=== PATIENT | female | born 2000 | race Caucasian/White ===

== ENCOUNTER 2023-06-13 16:00 | Outpatient (CLI) | payer BC, OTHER ==
[2023-06-13 20:41] LABS: BASOPHILS % (AUTO) 0.4 %; EOSINOPHILS # (AUTO) 0.1 10^3/uL (0.0-0.7); EOSINOPHILS % (AUTO) 1.3 %; HCT - HEMATOCRIT 42.1 % (37.0-47.0); HGB - HEMOGLOBIN 13.2 g/dL (12.0-16.0); LYMPHOCYTES % (AUTO) 25.8 %; MEAN CORPUSCULAR HGB CONC 31.4 g/dL (32.0-36.0); MEAN CORPUSCULAR VOLUME 86.1 fL (81.0-99.0); MEAN PLATELET VOLUME 11.1 fL (7.9-10.8); MONOCYTES # (AUTO) 0.6 10^3/uL (0.0-1.0); MONOCYTES % (AUTO) 7.3 %; NEUTROPHILS # (AUTO) 5.1 10^3/uL (1.5-6.6); NEUTROPHILS % (AUTO) 64.7 %; PLT - PLATELET COUNT 283 10^3/uL (130-450); RED BLOOD COUNT 4.89 10^6/uL (4.20-5.40); WHITE BLOOD COUNT 7.9 x10^3/uL (4.8-10.8)
[2023-06-13 20:59] LABS: ALBUMIN 4.3 g/dL (3.2-5.5); ALBUMIN/GLOBULIN RATIO 1.3 (1.0-2.2); BILIRUBIN,TOTAL 0.3 mg/dL (0.2-1.0); CALCIUM 9.9 mg/dL (8.5-10.3); CREATININE 0.9 mg/dL (0.6-1.3); POTASSIUM 4.1 mmol/L (3.5-4.5); TOTAL PROTEIN 7.7 g/dL (6.4-8.9)
[2023-06-13 23:12] LABS: THYROID STIMULATING HORMONE 1.83 uIU/mL (0.34-5.60)
== END 2023-06-13 16:15 | disposition home or self-care (01) ==
LOC: LAB.N 16:00
PROVIDERS: ATTEND Physician Assistant Medical
DX: R10.32 Left lower quadrant pain (principal); R53.83 Other fatigue
CPT/HCPCS: 36415; 80053; 83690; 84443; 85025

== ENCOUNTER 2023-06-14 08:00 | Outpatient (CLI) | payer BC, OTHER | END 2023-06-14 23:59 | disposition home or self-care (01) | LOC: LAB.R 08:00 | PROVIDERS: ATTEND Physician Assistant Medical | DX: R10.32 Left lower quadrant pain (principal) | CPT/HCPCS: 87045; 87046; 87427 ==

== ENCOUNTER 2023-08-04 13:31 | Outpatient (CLI) | payer BC, OTHER | END 2023-08-04 23:59 | disposition critical access hospital (66) | LOC: EMS 13:31 | DX: G43.909 Migraine, unspecified, not intractable, without status migrainosus (principal) | CPT/HCPCS: A0425; A0427 ==

== ENCOUNTER 2023-08-04 13:56 | Emergency (ER) | payer BC, OTHER ==
--- NOTE | 2023-08-04 14:12 | ED Physician Documentation ---
PD HPI HEADACHE - Stated complaint Stated Complaint: MIGRAINE - History obtained from History obtained from: Patient, EMS - Additional information Additional information: 23-year-old female with a history of migraine headaches presents via EMS with a migraine. The patient has migraines 2-3 times a month, and this morning she woke up with typical migraine behind the left eye and on the left side of the head. She states it progressively worsened and then she had a stabbing sensation of the left side of the head it was worse than her normal migraines. She took Excedrin without relief and thus called EMS. Upon EMS arrival, the patient was awake alert, with no acute neurologic changes. She was given 30 mg of IM Toradol and her headache has improved substantially since she received that medication. She feels nauseous but not vomiting, has not had any acute vision changes other than light sensitivity, no focal neurochanges including no numbness or tingling, no weakness, no difficulty speaking. The patient had tried sumatriptan in the past but it "made her bones hurt," and so she mostly takes Excedrin. She has never seen a neurologist for her headaches.She denies fever, chills, neck stiffness, cough or URI symptoms, no abdominal pain nausea vomitingno diarrhea constipation or urinary symptoms. She denies any chance of . Review of Systems Constitutional: reports: Reviewed and negative Eyes: reports: Reviewed and negative Ears: reports: Reviewed and negative Nose: reports: Reviewed and negative Throat: reports: Reviewed and negative Cardiac: reports: Reviewed and negative Respiratory: reports: Reviewed and negative GI: reports: Reviewed and negative : reports: Reviewed and negative Skin: reports: Reviewed and negative Musculoskeletal: reports: Reviewed and negative Neurologic: reports: Headache Psychiatric: reports: Reviewed and negative PD PAST MEDICAL HISTORY - Past Medical History Past Medical History: Yes Neuro: Migraines - Present Medications Home Medications: Ambulatory Orders Medication Instructions Recorded Confirmed Metoclopramide [Reglan] 10 mg PO Q6H PRN #30 tablet 08/04/23 - Allergies Allergies/Adverse Reactions: Allergies Allergy/AdvReac Type Severity Reaction Status Date / Time codeine Allergy Rash Verified 08/04/23 14:55 PD ED PE NORMAL - Vitals Vital signs reviewed: Yes - General General: Alert and oriented X 3, No acute distress, Well developed/nourished - HEENT HEENT: Atraumatic, PERRL, EOMI, Ears normal, Moist mucous membranes, Pharynx benign - Neck Neck: Supple, no meningeal sign, No bony TTP, No adenopathy, No JVD - Cardiac Cardiac: RRR, No murmur, No gallop, No rub - Respiratory Respiratory: No respiratory distress, Clear bilaterally - Abdomen Abdomen: Normal bowel sounds, Soft, Non tender, Non distended - Derm Derm: Normal color, Warm and dry, No rash - Extremities Extremities: No deformity, No tenderness to palpate, Normal ROM s pain, No cedric ma, No calf tenderness / cord - Neuro Neuro: Alert and oriented X 3, 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, No motor deficit, No sensory deficit, Normal speech Eye Opening: Spontaneous Motor: Obeys Commands Verbal: Oriented GCS Score: 15 Results - Vitals Vitals: Vital Signs - 24 hr 08/04/23 14:11 Temperature 36.4 C L Heart Rate 78 Respiratory 18 Rate Blood Pressure 133/70 H O2 Saturation 98 Oxygen O2 Source Room air - Rads (name of study) No standard instances Relevant Findings:: Final report received PD Medical Decision Making - ED course Complexity details: reviewed results, re-evaluated patient, considered differential, d/w patient ED course: 23-year-old female with a past medical history of migraines presented with a severe left-sided headache, typical typical location of prior migraines though worse than her normal. She had no acute neurologic changes. She had a lot of relief with Toradol but still had a mild headache on arrival here therefore we gave Benadryl and metoclopramide as well as a liter of normal saline with near complete resolution of her headache but the patient remain concerned that this was a lot more severe than her normal therefore we discussed imaging and she did want to proceed with a CT scan. I discussed with patient that in a small percentage of patients a CT scan could miss a subarachnoid hemorrhage and that I would recommend an LP if she remained concerned about that but the patient declined LP. She wanted to continue with the CT scan however. CT scan was reassuring and patient has not had recurrence of her symptoms, is completely neurologically at baseline and stable for discharge home. She was encouraged to follow-up with her PCP consider outpatient neurology consult given the fr equency of her headaches.n Departure - Departure Disposition: 01 Home, Self Care Clinical Impression: Migraine Qualifiers: Migraine type: unspecified Status migrainosus presence: without status migrainosus Intractability: not intractable Qualified Code(s): G43.909 - Migraine, unspecified, not intractable, without status migrainosus Condition: Good Instructions: ED Headache Migraine Prescriptions: Metoclopramide [Reglan] 10 mg PO Q6H PRN #30 tablet PRN Reason: Nausea / Vomiting Comments: Please follow-up with your primary doctor and consider referral to neurology given your frequent migraine episodes. Your head CT today was reassuring and your headache improved after receiving Toradol, metoclopramide, and Benadryl through the IV. If you have recurrent headaches, this can be medication that is repeated. I have prescribed a different nausea medicine that also helps with headaches that she can use at home as needed. Forms: PCP List
[2023-08-04] MEDS: SODIUM CHLORIDE 0.9% 1,000 ML IV STA (15:05)
[2023-08-04] MEDS: METOCLOPRAMIDE 10 MG/2 ML VIAL IVP STA (15:10)
[2023-08-04] MEDS: diphenhydrAMINE INJ 50 MG/ML VIAL IVP STA (15:11)
--- NOTE | 2023-08-04 17:27 | CT Report ---
PROCEDURE: Head WO INDICATIONS: severe headache TECHNIQUE: Noncontrast 4.5 mm thick angled axial sections acquired from the foramen magnum to the vertex. For r adiation dose reduction, the following was used: automated exposure control, adjustment of mA and/or kV according to patient size. COMPARISON: None. FINDINGS: Image quality: Excellent. CSF spaces: Basal cisterns are patent. No extra-axial fluid collections. Ventricles are normal in size and shape. Brain: No midline shift. No intracranial masses or hemorrhage. Childress-white matter interface is norm al. Skull and face: Calvarium and visualized facial bones are intact, without suspicious lesions. Sinuses: Visualized sinuses and mastoids are clear. IMPRESSION: No acute intracranial pathology. Reviewed by: Vicki Jiang MD on 08/04/2023 5:25 PM PDT Approved by: Vicki Jiang MD on 08/04/2023 5:25 PM PDT Station ID: [id number]
[2023-08-04 18:06] VITALS: BP 110/67; O2SAT 97
== END 2023-08-04 18:03 | disposition home or self-care (01) ==
LOC: EDUNIT# → ED 13:56
DX: G43.909 Migraine, unspecified, not intractable, without status migrainosus (principal)
CPT/HCPCS: 70450; 96374; 96375; 99283; 99284; J1200; J2765

== ENCOUNTER 2023-10-03 08:45 | Outpatient (CLI) | payer BC, OTHER ==
--- NOTE | 2023-10-04 10:51 | Ultrasound Report ---
ULTRASOUND OF RIGHT AXILLA: 10/03/2023 CLINICAL: Palpable right axilla lump. No prior exams were available for comparison. Color flow ultrasound of the right axilla was performed. Childress scale images of the real-time examinat ion were reviewed. No significant abnormalities were seen sonographically in the right axilla. No correlate to the reso lved palpable abnormality. IMPRESSION: NEGATIVE There is no sonographic correlate to the patient's palpable abnormality and no evidence of malignancy . Clinical follow up is recommended for symptoms as needed. Screening mammography beginning at age 40 is recommended. Findings and recommendations were conveyed to the patient at time of exam. This exam was interpreted at Station ID: [id number]. Electronically Signed By: Thelma smith/:10/03/2023 09:41:27 letter sent: No_Letter Ultrasound BI-RADS: 1 Negative BI-RADS CATEGORY: (1) - 1 Unspecified - other recall n/a LATERALITY: (B)
== END 2023-10-03 08:46 | disposition home or self-care (01) ==
LOC: DI 08:45
PROVIDERS: ATTEND Nurse Practitioner Family
DX: N63.31 Unspecified lump in axillary tail of the right breast (principal)

== ENCOUNTER 2023-11-10 08:59 | Emergency (ER) | payer BC, OTHER ==
[2023-11-10 09:33] LABS: BASOPHILS % (AUTO) 0.3 %; EOSINOPHILS # (AUTO) 0.2 10^3/uL (0.0-0.7); EOSINOPHILS % (AUTO) 1.5 %; HCT - HEMATOCRIT 42.8 % (37.0-47.0); HGB - HEMOGLOBIN 13.7 g/dL (12.0-16.0); LYMPHOCYTES # (AUTO) 1.9 10^3/uL (1.5-3.5); LYMPHOCYTES % (AUTO) 19.7 %; MEAN CORPUSCULAR HEMOGLOBIN 27.9 pg (27.0-31.0); MEAN CORPUSCULAR VOLUME 87.2 fL (81.0-99.0); MEAN PLATELET VOLUME 10.2 fL (7.9-10.8); MONOCYTES # (AUTO) 0.6 10^3/uL (0.0-1.0); MONOCYTES % (AUTO) 6.1 %; NEUTROPHILS # (AUTO) 7.1 10^3/uL (1.5-6.6); PLT - PLATELET COUNT 285 10^3/uL (130-450); RED BLOOD COUNT 4.91 10^6/uL (4.20-5.40); RED CELL DISTRIBUTION WIDTH 12.7 % (12.0-15.0); WHITE BLOOD COUNT 9.8 x10^3/uL (4.8-10.8)
[2023-11-10 09:46] LABS: ALBUMIN 4.1 g/dL (3.2-5.5); ALBUMIN/GLOBULIN RATIO 1.2 (1.0-2.2); BILIRUBIN,TOTAL 0.6 mg/dL (0.2-1.0); CALCIUM 9.3 mg/dL (8.5-10.3); CREATININE 0.9 mg/dL (0.6-1.3); TOTAL PROTEIN 7.4 g/dL (6.4-8.9)
[2023-11-10 10:13] LABS: BILIRUBIN,URINE NEGATIVE (NEGATIVE); GLUCOSE, URINE (UA) NEGATIVE (NEGATIVE); KETONES,URINE (UA) NEGATIVE (NEGATIVE); LEUKOCYTE ESTERASE, URINE NEGATIVE (NEGATIVE); NITRITE,URINE NEGATIVE (NEGATIVE); OCCULT BLOOD,URINE TRACE-LYSE (NEGATIVE); PROTEIN,URINE NEGATIVE (NEGATIVE); UROBILINOGEN,URINE 0.2 (NORMAL) E.U./dL (NORMAL)
[2023-11-10 10:14] LABS: CLARITY,URINE CLEAR (CLEAR)
[2023-11-10 10:15] LABS: HCG UR QUAL NEGATIVE
--- NOTE | 2023-11-10 10:41 | ED Physician Documentation ---
History of Present Illness - Stated complaint Stated Complaint: LT LOWER BACK PX,NAUSEA - Chief complaint Chief Complaint: Abd Pain - History obtained from History obtained from: Patient - Additonal information Additional information: The patient comes to the emergency department with chief complaint of left pelvic pain that started this morning when she woke up. She states it is sharp and tearing. It is fine as long she does not move about as soon as she moves, she gets a severe pain. She states it hurts about it makes her nauseated. No fevers or chills. No dysuria or vaginal symptoms. She states she is on about day 18 of her cycle and is not currently bleeding. PD PAST MEDICAL HISTORY - Past Medical History Past Medical History: Yes Neuro: Migraines MANUFACTURING MANAGER: Ovarian cysts - Past Surgical History Past Surgical History: Yes /MANUFACTURING MANAGER: Other - Present Medications Home Medications: Ambulatory Orders Medication Instructions Recorded Confirmed Metoclopramide [Reglan] 10 mg PO Q6H PRN #30 tablet 08/04/23 - Allergies Allergies/Adverse Reactions: Allergies Allergy/AdvReac Type Severity Reaction Status Date / Time codeine Allergy Rash Verified 11/10/23 09:19 - Social History Does the pt smoke?: No Smoking Status: Never smoker Does the pt drink ETOH?: Yes Does the pt have substance abuse?: Yes - Immunizations Immunizations are current?: Yes - POLST Patient has POLST: No PD ED PE NORMAL - Vitals Vital signs reviewed: Yes - General General: Alert and oriented X 3, No acute distress, Well developed/nourished - HEENT HEENT: Atraumatic, PERRL, EOMI, Moist mucous membranes - Neck Neck: Supple, no meningeal sign - Cardiac Cardiac: RRR, No murmur - Respiratory Respiratory: No respiratory distress, Clear bilaterally - Abdomen Abdomen: Soft, Non distended, Other (Exquisite tenderness left pelvis/lower quadrant. No rebound or guarding. Exam brings patient to tears. Remainder of abdominal exam is benign.) - Derm Derm: Normal color, Warm and dry, No rash - Extremities Extremities: No deformity - Neuro Neuro: Other (Alert, grossly intact.) - Psych Psych: Normal mood, Normal affect Results - Vitals Vitals: Vital Signs - 24 hr 11/10/23 11/10/23 11/10/23 09:16 11:19 13:00 Temperature 36.5 C Heart Rate 98 62 62 Respiratory 20 16 13 Rate Blood Pressure 148/103 H 138/85 H 119/76 O2 Saturation 98 96 99 11/10/23 15:15 Temperature 36 C L Heart Rate 70 Respiratory 18 Rate Blood Pressure 106/91 H O2 Saturation 100 Oxygen O2 Source Room air - Labs Labs: Laboratory Tests 11/10/23 11/10/23 11/10/23 09:27 09:27 10:06 WBC 9.8 RBC 4.91 Hgb 13.7 Hct 42.8 MCV 87.2 MCH 27.9 MCHC 32.0 RDW 12.7 Plt Count 285 MPV 10.2 Neut # (Auto) 7.1 H Lymph # (Auto) 1.9 Wharton # (Auto) 0.6 Eos # (Auto) 0.2 Baso # (Auto) 0.0 Absolute Nucleated RBC 0.00 Nucleated RBC % 0.0 Sodium 137 Potassium 4.0 Chloride 103 Carbon Dioxide 27 Anion Gap 7.0 BUN 15 Creatinine 0.9 Estimated GFR (MDRD) 76 L Glucose 110 H Calcium 9.3 Total Bilirubin 0.6 AST 13 ALT 21 Alkaline Phosphatase 85 Total Protein 7.4 Albumin 4.1 Globulin 3.3 Albumin/Globulin Ratio 1.2 Lipase 16 Urine Color YELLOW Urine Clarity CLEAR Urine pH 6.0 Ur Specific [place] >=1.030 H Urine Protein NEGATIVE Urine Glucose (UA) NEGATIVE Urine Ketones NEGATIVE Urine Occult Blood TRACE-LYSE Urine Nitrite NEGATIVE Urine Bilirubin NEGATIVE Urine Urobilinogen 0.2 (NORMAL) Ur Leukocyte Esterase NEGATIVE Ur Microscopic Review NOT INDICATED Urine Culture Comments NOT INDICATED Urine HCG, Qual 11/10/23 10:06 WBC RBC Hgb Hct MCV MCH MCHC RDW Plt Count MPV Neut # (Auto) Lymph # (Auto) [place]arton # (Auto) Eos # (Auto) Baso # (Auto) Absolute Nucleated RBC Nucleated RBC % Sodium Potassium Chloride Carbon Dioxide Anion Gap BUN Creatinine Estimated GFR (MDRD) Glucose Calcium Total Bilirubin AST ALT Alkaline Phosphatase Total Protein Albumin Globulin Albumin/Globulin Ratio Lipase Urine Color Urine Clarity Urine pH Ur Specific [place] Urine Protein Urine Glucose (UA) Urine Ketones Urine Occult Blood Urine Nitrite Urine Bilirubin Urine Urobilinogen Ur Leukocyte Esterase Ur Microscopic Review Urine Culture Comments Urine HCG, Qual NEGATIVE - Rads (name of study) US pelvis Relevant Findings:: Final report received, See rad report (neg) CT abd/pelvis Relevant Findings:: Final report received, See rad report (neg) PD Medical Decision Making - ED course Complexity details: reviewed results, re-evaluated patient, considered differential, d/w patient ED course: The patient was treated symptomatically with IV fluids, Dilaudid, and Toradol. She was also given Zofran. Laboratory studies were unremarkable, UA was negative, and test was negative. A pelvic ultrasound was ordered and negative, as was a noncontrast CT abd/pelvis. The pt was stable for d/c. We have discussed home management of the sx, as well as the usual indications for return. Departure - Departure Disposition: Home, Self Care Clinical Impression: Pelvic pain in female Condition: Stable Instructions: ED Pelvic Pain UKO Comments: Your labs, ultrasound, and CT scan all look good. You may have some pain and inflammation coming from the suspensory ligament of your left ovary, given the polycystic ovarian syndrome. Went over the case, there is no evidence of a serious or emergent condition and your pain is expected to blow over on its own in the next several days to a week. Please follow-up with your doctor or TELEMARKETER if your pain continues for longer than this. You may take ibuprofen and Tylenol as needed for the pain. Forms: PCP List Discharge Date/Time: 11/10/23 15:20
[2023-11-10] MEDS: KETOROLAC 30 MG/ML VIAL IVP STA (10:54)
[2023-11-10] MEDS: HYDROmorphone 1 MG/ML CARPUJECT IVP STA (10:54)
--- NOTE | 2023-11-10 11:46 | Ultrasound Report ---
PROCEDURE: Pelvic w/Transvag+Doppler Comp--only transabdominal imaging was performed. INDICATIONS: pelvic pain, L TECHNIQUE: Real-time scanning was performed of the pelvic organs, with image documentation. Only transabdominal imaging was performed. Doppler interrogation was performed of the ovaries bilaterally. COMPARISON: None. FINDINGS: Uterus: Uterus is anteverted and normal in size at 6.8 x 3.4 x 4.9 cm. The myometrium is homogeneou s. The endometrium measures 8.6 mm in combined thickness. No fibroids noted Ovaries: The right ovary measures 1.8 x 2.5 x 1.5 cm, with a calculated ovarian volume of 3.1 cc. T he left ovary measures 2.9 x 1.7 x 1.7 cm, with a calculated ovarian volume of 4.5 cc. Appropriate b lood flow to the ovaries with Doppler interrogation. Less than 12 follicles can be seen in each ova ry. No adnexal masses are seen. No cystic lesions measuring greater than 3 cm. Bilateral intraovaria n flow by duplex. Other: No pathologic free abdominal or pelvic fluid. IMPRESSION: Unremarkable pelvic ultrasound. Reviewed by: Deep Thomas MD on 11/10/2023 11:44 AM PDT Approved by: Deep Thomas MD on 11/10/2023 11:44 AM PDT Station ID: [id number]
[2023-11-10] MEDS: HYDROmorphone 0.5 MG/0.5 ML SYRINGE IVP STA (12:11)
--- NOTE | 2023-11-10 12:55 | CT Report ---
PROCEDURE: Abdomen/Pelvis WO INDICATIONS: L flank pain TECHNIQUE: A CT scan of the abdomen and pelvis was performed without the use of intravenous contrast. Images we re recorded and evaluated at appropriate window settings. Reformats: coronal and sagittal. For radiat ion dose reduction, the following was used: automated exposure control, adjustment of mA and/or kV ac cording to patient size. COMPARISON: None. FINDINGS: Image quality: Diagnostic. Lower chest: Unremarkable. Liver: No contour-deforming mass. Gallbladder: No radiopaque stones or wall thickening. Biliary tree: No intrahepatic or extrahepatic dilation, accounting for age. Spleen: No splenomegaly. Pancreas: No pancreatic ductal dilation. Adrenals: No adrenal nodule. Kidneys and ureters: No hydronephrosis. No contour-deforming mass. Stomach, bowel and peritoneum: No gastric or small bowel dilation. No abnormal wall thickening. No pa thologic free fluid. Normal appendix. Lymph nodes: No central or retroperitoneal adenopathy. Vessels: No infrarenal aortic aneurysm. Reproductive organs: Uterus is present. No adnexal masses or cysts.. Bladder: Bladder wall thickness is normal, accounting for underdistention. No calcified bladder stone s. Pelvic lymph nodes: No adenopathy by size criteria. Bones: No aggressive osseous abnormality. Other: No significant ventral or inguinal hernia. IMPRESSION: 1. No renal stone, ureteral stone, or hydronephrosis. 2. No acute abdominal process. Reviewed by: Deep Thomas MD on 11/10/2023 12:54 PM PDT Approved by: Deep Thomas MD on 11/10/2023 12:54 PM PDT Station ID: [id number]
[2023-11-10 15:25] VITALS: BP 106/91; O2SAT 100
== END 2023-11-10 15:20 | disposition home or self-care (01) ==
LOC: ED 08:59
DX: R10.2 Pelvic and perineal pain (principal)
CPT/HCPCS: 36415; 74176; 76830; 76856; 80053; 81003; 81025; 83690; 85025; 93975; 96374; 96376; 99284; J1170; 81001; 87086